=== PATIENT | male | born 1995 | race Two or more races ===

== ENCOUNTER 2021-11-05 16:55 | Emergency (ER) | payer SELFPAY ==
[~2021-11-05] VITALS: Ht 193 cm; Wt 100.2 kg
[2021-11-05 18:55] VITALS: BP 110/74
[2021-11-05] MEDS ORDERED: LIDOCAINE 1% HCL (LOCAL ANESTH.) INJ 20ML MDV IJ ONE (19:45)
[2021-11-05] MEDS ORDERED: cefTRIAXone SOD 1,000 MG VL IM ONE (19:45)
[2021-11-05] MEDS ORDERED: methylPREDNISolone SOD SUCC 125 MG/2 ML VL IM ONE (19:45)
[2021-11-05] MEDS ORDERED: AZIT250T8 PO (20:49)
[2021-11-05] MEDS ORDERED: PROM1SOL4 PO (20:49)
[2021-11-05] MEDS ORDERED: PRED20TA2 PO (20:49)
== END 2021-11-05 21:05 | disposition home or self-care (01) ==
LOC: ER 16:55
DX: J40 Bronchitis, not specified as acute or chronic (principal); Z20.822 Contact with and (suspected) exposure to COVID-19
CPT/HCPCS: 36415; 71046; 87426; 96372; 99284; J0696; J2001; J2930